=== PATIENT | female | born 1955 | race Caucasian/White ===

== ENCOUNTER → 2017-03-05 | Outpatient (CLI) | payer OTHER ==
[~2017-03-05] MED LIST: AMARYL2 MG PO; APAP500 PO; ASPIR 8181 MG PO; BIOTIN10000 MC1 PO; COQ-10100 MG PO; CRESTOR20 MG PO; CYMBALTA60 MG PO; FISH OIL 1,001000 M2 PO; FISH OIL 1,2001 EAC3 PO; GLUCOPHAGE XR500 MG PO; INVOKANA300 MG PO; MULTIVITAMINS PO; PRINIVIL20 M1 PO; PROTONIX40 M1 PO; VICTOZA0.6 MG/0.1 SUBQ; VITAMIN B-12500 MCG PO; VITAMIN D31000 UNI2 PO
== END ==
LOC: MRI 08:53
DX: M47.896 Other spondylosis, lumbar region (principal); M54.17 Radiculopathy, lumbosacral region

== ENCOUNTER → 2017-05-19 | Outpatient (CLI) | payer OTHER ==
[~2017-05-19] VITALS: Ht 167.6 cm; Wt 92.5 kg
[~2017-05-19] MED LIST changes: +FARXIGA5 MG PO; +MOBIC15 MG PO; +TRULICITY0.75 MG/0.
--- NOTE | ~2017-05-19 | HPC ---
[facility] [address] [place] [address] PAIN MANAGEMENT CONSULTATION Name: SAVITA LOBO Room #: REG [facility].#: [id number] Admission: 05/19/17 Attend Phys: Elfego Bahena MD Discharge: Date of : 51 Report #: [id number] THIS REPORT FOR: //name// CC: Elfego Nava MD DATE OF SERVICE: 05/19/2017 FOLLOWUP COMPLAINT: Pain in the low back for more than a decade. It has gotten worse. HISTORY OF PRESENT ILLNESS: The patient is a 62-year-old female who has been referred to the Pain Clinic for evaluation. The patient has had pain in her back, which has continued to increase this year. She is experiencing pain in the lower portion of her back with pain radiating down to the posterior portion of her left leg. She rates it as 6/10. She describes it as steady, shooting, aching and sharp. Notes that the pain really is problematic when she is trying to get ready in the morning. Notes that medications can sometimes be helpful. She has had laser back surgery in the past. She denies any bowel or bladder dysfunction that has significantly changed. She continues to have muscle spasms in her low back, which radiated down into her leg involving her foot. She also has some upper leg muscle cramping. She has been told that she has some degenerative joint problems with bulging disk. She has been treated in the past with epidural steroid injections and gleaned some benefit from that. ALLERGIES: LIPITOR, CRESTOR. MEDICATIONS: Trulicity 0.75 mg/0.5 injection, Meloxicam 15 mg, Farxiga 5 mg, Tylenol 500 mg, Cymbalta 60 mg, lisinopril 20 mg, Protonix 40, Glucophage-XR 500 mg b.i.d. 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 PAST SURGICAL HISTORY: Parathyroidectomy 09/2015. FAMILY HISTORY: No significant family history is applicable at this juncture. SMOKING HISTORY: Denies use of tobacco. PAST SURGICAL HISTORY: was 1981 and the laser surgery was 2001. SOCIAL HISTORY: She is an accounting representative. She is working at this juncture. Denies use of alcoholic beverages at this juncture. Denies use of tobacco. [address] [address] PAIN MANAGEMENT CONSULTATION Name: SAVITA LOBO Room #: REG [facility]#: [id number] Admission: 05/19/17 Attend Phys: Elfego Bahena MD Discharge: Date of : 51 Report #: [id number] REVIEW OF SYSTEMS: Questionnaire in the chart 14-point reveals weakness and fatigue, wears glasses, hearing loss, depression, diabetes. LABORATORY DATA: MRI of the lumbar spine dated 03/05/2017 reveals: 1. L3-L4 diffuse disk bulge. There is prominent facet spurring and degenerative changes with mild ligamentum flavum hypertrophy. Central canal is maintained. Neural foramen are narrowed bilaterally inferiorly. 2. L4-L5 shows diffuse disk bulging. There is moderate facet degenerative change. Central canal and neural foramen are maintained. Minimal foraminal narrowing is noted at the right foramen. 3. L5-S1 demonstrates left lateral disk protrusion extruding into the neural foramen and bilaterally and laterally with fairly broad base suggesting diffuse disk bulging. This combines with facet degenerative change to cause left foraminal encroachment. Milder changes are noted on the right and right neural foramen is maintained. There is mild facet degenerative changes, greater on the left with some facet spurring, greater on the left. Central canal is maintained. PHYSICAL EXAMINATION: Blood pressure 129/75pulse of 99, respiratory rate 16, room air saturation 94%. Height 5 feet 6 inches, weight 204 pounds, BMI is 32. The patient has pain and discomfort which is radiating down the left low back area in the L5-S1 dermatomal distribution with numbness, tingling and weakness down to the level of her ankle. She perceives some increased pain and discomfort when she bends over. Straight leg raise is positive. IMPRESSION: 1. Lumbar radiculopathy involving the right leg. 2. Risks and benefits of an epidural steroid injection were discussed. Possible complications of the procedure were reviewed. They include but are not limited to infection, increased muscle soreness, headache, bleeding, worsening of pain, nerve trauma. She elects to proceed. PROCEDURE NOTE: The patient was placed in the prone position. Fluoroscopy was used to identify the L4-L5 interspace. This area had been sterilely prepped with Betadine and infiltrated with 0.25% bupivacaine. Total of 80 mg Depo-Medrol, 40 mg triamcinolone and 2 mL of 0.25% bupivacaine was injected. The patient tolerated the procedure well. She remained in the Pain Clinic for an appropriate amount of time. Her pain score was 0 at the time of discharge. She will follow up in the future as needed. [address] [address] PAIN MANAGEMENT CONSULTATION Name: SAVITA LOBO Room #: [facility]ALA Mcintyre#: [id number] Admission: 05/19/17 Attend Phys: Elfego Bahena MD Discharge: Date of : 51 Report #: [id number] We would like to thank you for letting us participate in her care. We hope she continues to improve. By: [id number] Elfego Bahena MD /SANKET
[2017-05-19 10:21] VITALS: BP 129/75
== END ==
LOC: PAIN 07:13
DX: M54.16 Radiculopathy, lumbar region (principal); I10 Essential (primary) hypertension; E11.9 Type 2 diabetes mellitus without complications; E78.5 Hyperlipidemia, unspecified; F32.89 Other specified depressive episodes; Z79.899 Other long term (current) drug therapy; Z98.890 Other specified postprocedural states; Z88.8 Allergy status to other drugs, medicaments and biological substances

== ENCOUNTER → 2018-03-02 | Outpatient (CLI) | payer OTHER ==
[2018-02-25 14:51] VITALS: BP 163/93
[~2018-03-02] VITALS: Ht 167.6 cm; Wt 91.6 kg
--- NOTE | ~2018-03-02 | HPC ---
[facility] [address] [address] PAIN MANAGEMENT CONSULTATION Name: SAVITA LOBO Room #: REG [facility]..#: [id number] Admission: 03/02/18 Attend Phys: Elfego Bahena MD Discharge: Date of : 51 Report #: [id number] THIS REPORT FOR: //name// CC: Elfego Nava DATE OF SERVICE: 03/02/2018 CHIEF COMPLAINT: "Pain in the back down into right leg, I am here for an injection." FOLLOWUP HISTORY: The patient is a 63-year-old female who has been seen in the Pain Clinic in the past because of lumbar radiculopathy. She has returned today for an epidural steroid injection. She feels that the injections in the past have been beneficial. Rates her pain as a 6/10. She is having pain that is in the lower portion of her back and radiates down into the right leg. She notes there is a shooting characteristic to it. Notes that the pain is exacerbated with activities of daily living and is worse in the morning. Finds that use of her medications are helpful. We would like to undergo another injection today. She is experiencing pain that is radiating down and describes it as steady, shooting, aching, and sharp. Feels that the pain is in the front portion of her leg. ALLERGIES: LIPITOR AND CRESTOR. MEDICATIONS: Trulicity 0.75 mg/0.5, Meloxicam 15 mg, Farxiga 5 mg, Tylenol 500 mg, Cymbalta 60 mg, lisinopril 20 mg, Protonix 40 mg, Glucophage-XR 500 mg b.i.d. PAIN CLINIC ASSESSMENT/PQRS: 1. History of osteoarthritis/rheumatoid arthritis: The patient is not being treated for either of these. 2. Height 5 feet 6 inches, weight 200 pounds, BMI is 32.4. 3. Vital signs: Blood pressure 163/93, pulse 102, respiratory rate 16, room air saturation 93%. 4. Pain intensity: /10. 5. Fall risk: The patient has not fallen in the last 3 months. 6. Blood thinner: The patient is not on a blood thinning medication. 7. Hypertension: The patient is not being treated for hypertension. 8. Opioid therapy greater than 6 weeks: The patient is not receiving any opioid medications. 9. Risk assessment tool: Low risk. 10. Functional assessment tool: 40/70. 11. Recreational drug use: The patient denies. 12. Tobacco: The patient is a former smoker, he is [place] [address] PAIN MANAGEMENT CONSULTATION Name: SAVITA LOBO Room #: REG [facility]#: [id number] Admission: 03/02/18 Attend Phys: Elfego Bahena MD Discharge: Date of : 51 Report #: [id number] 13. Alcohol: The patient denies use of alcoholic beverages. PHYSICAL EXAMINATION: GENERAL: The patient is a well-developed, well-nourished, white female. Slightly obese. She is alert and oriented x 3. Affect is appropriate. Speech is fluent. HEENT: Normocephalic, atraumatic. Extraocular eye muscles intact. Sclerae nonicteric. Mucous membranes are moist. NECK: With good range of motion without adenopathy. CHEST: Clear to auscultation without rhonchi or rales. HEART: Regular rate, S1 and S2. ABDOMEN: Protuberant. Bowel sounds present. MUSCULOSKELETAL: Upper extremity muscle strength is judged to be 5/5 in regards to the upper muscle strength. Lower extremity muscle strength is judged to be 5/5 for the major muscle groups in the lower portion and with pain and discomfort in the L4-L5 distribution. Notes some weakness and tenderness in the low back area as well. DIAGNOSTIC DATA: MRI with moderate facet degenerative changes and central canal narrowing on the right in the neural foramen. RECOMMENDATIONS: We discussed the treatment plan with the patient. Again, she would like to proceed with another epidural steroid injection. She has gleaned benefit from this. She is aware of the possible complications, which we discussed. They include but are not limited to infection, increased muscle soreness, headache, bleeding, worsening of pain, no improvement in pain, and the patient elects to proceed. PROCEDURE NOTE: The patient was taken to the procedure area. She was assisted in getting on the examination table. Her back was sterilely prepped with Betadine solution. Fluoroscopy using anterior and posterior as well as lateral viewing was used. The patient's back was sterilely prepped with Betadine solution. A right paraspinous approach was used at L4-L5. 0.25% bupivacaine was infiltrated. A 17-gauge Tuohy with loss of resistance technique was used to gain access to the epidural space. There was no CSF, heme or paresthesia. Total of 80 mg Depo-Medrol, 40 mg triamcinolone, and 2 mL of 0.25% bupivacaine was injected. The patient tolerated the procedure well. There were no complications. She remained in the Pain Clinic for an appropriate amount of time. There was no bleeding. She will follow up in the future as needed. Approximately 15 seconds fluoroscopy time was used. <ELECTRONICALLY SIGNED> By: Elfego Bahena MD 03/21/18 1124 20 0433 Elfego Bahena MD /bossman
[2018-03-02 08:06] VITALS: BP 127/75
== END | disposition home or self-care (01) ==
LOC: PAIN 02-25 07:09
DX: M54.16 Radiculopathy, lumbar region (principal); G89.29 Other chronic pain; Z87.891 Personal history of nicotine dependence; Z88.8 Allergy status to other drugs, medicaments and biological substances; Z79.899 Other long term (current) drug therapy

== ENCOUNTER → 2019-01-05 | Outpatient (CLI) | payer OTHER ==
[2019-01-05 15:41] LABS: ALBUMIN 3.8 g/dL (3.4-5.0); ANION GAP 12 mmol/L (7-16); BUN 21 mg/dL (7-18); CHLORIDE 99 mmol/L (98-107); CO2 25 mmol/L (21-32); GLUCOSE 140 mg/dL (74-106); SGOT 7 U/L (15-37); SGPT 22 U/L (30-65); SODIUM 136 mmol/L (136-145); TOTAL BILIRUBIN 0.5 mg/dL (<0.1-1.0); TOTAL PROTEIN 7.6 g/dL (6.4-8.2)
[2019-01-05 15:42] LABS: CALCIUM < 5.0 mg/dL (8.5-10.1)
== END ==
LOC: LABMALL 13:58 → LAB 13:58 → CAT 13:58
PROVIDERS: Family Medicine
DX: K57.30 Diverticulosis of large intestine without perforation or abscess without bleeding (principal); K76.0 Fatty (change of) liver, not elsewhere classified; I70.0 Atherosclerosis of aorta; M47.816 Spondylosis without myelopathy or radiculopathy, lumbar region; M48.07 Spinal stenosis, lumbosacral region; M25.78 Osteophyte, vertebrae; M51.36 Other intervertebral disc degeneration, lumbar region

== ENCOUNTER → 2019-02-13 | Outpatient (CLI) | payer OTHER ==
[~2019-02-13] VITALS: Ht 167.6 cm; Wt 86.2 kg
[~2019-02-13] MED LIST changes: +JANUMET 50-1,01 EACH PO; +MULTI VITAMIN1 EACH PO
== END | disposition home or self-care (01) ==
LOC: GI 09:42
DX: Z12.11 Encounter for screening for malignant neoplasm of colon (principal); K57.30 Diverticulosis of large intestine without perforation or abscess without bleeding; K64.8 Other hemorrhoids; E78.00 Pure hypercholesterolemia, unspecified; K21.9 Gastro-esophageal reflux disease without esophagitis; Z87.891 Personal history of nicotine dependence; Z79.4 Long term (current) use of insulin; Z88.8 Allergy status to other drugs, medicaments and biological substances; Z79.82 Long term (current) use of aspirin; Z79.899 Other long term (current) drug therapy
CPT/HCPCS: 62110; 62900

== ENCOUNTER → 2019-03-09 | Outpatient (CLI) | payer OTHER | LOC: NUC 07:48 → EDSTATUS 12:19 | DX: R06.09 Other forms of dyspnea (principal); I10 Essential (primary) hypertension; E11.9 Type 2 diabetes mellitus without complications; Z87.891 Personal history of nicotine dependence; Z79.899 Other long term (current) drug therapy ==